=== PATIENT | female | born 1945 | race Caucasian/White ===

== ENCOUNTER 2017-06-11 10:38 | Emergency (ER) | payer MEDICARE, MEDICAID ==
[~2017-06-11] VITALS: Ht 160 cm; Wt 72.7 kg
[~2017-06-11 10:38] MED LIST: ASPI-496 PO; ENAL5TAB PO; GLYB5TAB3 PO; HYDR-3240 PO; HYDR25TA6 PO; INSU100C SQ-INSULIN; INSU100V8 SQ
[2017-06-11] MEDS ORDERED: METF500T4 PO (11:04)
[2017-06-11] MEDS ORDERED: CHOL200074 PO (11:04)
[2017-06-11] MEDS ORDERED: ATOR-2 PO (11:04)
[2017-06-11] MEDS ORDERED: RANI300T PO (11:04)
[2017-06-11] MEDS ORDERED: PIOG15TA2 PO (11:04)
[2017-06-11 11:52] LABS: BASOPHILS # (AUTO) 0.03 x10^3/uL (0-0.1); BASOPHILS % (AUTO) 0 % (0-1); EOSINOPHILS # (AUTO) 0.16 x10^3/uL (0-0.4); EOSINOPHILS % (AUTO) 1 % (1-7); LYMPHOCYTES # (AUTO) 1.45 x10^3/uL (1-3.4); LYMPHOCYTES % (AUTO) 12 % (22-44); MD NO; MEAN CORPUSCULAR HEMOGLOBIN 30.1 pg (27.0-34.8); MEAN CORPUSCULAR HGB CONC 33.3 g/dL (32.4-35.8); MEAN CORPUSCULAR VOLUME 90.3 fL (80-100); MEAN PLATELET VOLUME 10.3 fL (7.4-10.4); MONOCYTES # (AUTO) 0.62 x10^3/uL (0.2-0.8); MONOCYTES % (AUTO) 5 % (2-9); NEUTROPHILS # (AUTO) 9.46 x10^3/uL (1.8-6.8); NEUTROPHILS % (AUTO) 81 % (42-75); PLATELET COUNT 211 x10^3/uL (130-400); RED BLOOD COUNT 4.22 x10^6/uL (3.82-5.3); RED CELL DISTRIBUTION WIDTH 14.6 % (9.6-15.2)
[2017-06-11 12:02] LABS: ALBUMIN 3.2 g/dL (3.4-5.0); ANION GAP 8 mmol/L (5-15); CALCIUM 8.1 mg/dL (8.5-10.1); CHLORIDE 99 mmol/L (98-107)
[2017-06-11 12:29] LABS: MICROSCOPIC NOT IND
[2017-06-11] MEDS ORDERED: HYDROmorphone 1 MG/ML, 1ML IM ONE (12:30)
[2017-06-11 12:31] LABS: CULTURE INDICATED? NO
[2017-06-11] MEDS ORDERED: HYDROmorphone 2 MG/ML, 1ML ONE ×2 (12:54→13:18)
[2017-06-11] MEDS ORDERED: INSULIN REGULAR 100 UNITS/ML, 3ML VIAL ONE (12:55)
[2017-06-11] MEDS ORDERED: DIPHENHYDRAMINE 50 MG/ML, 1ML ONE (13:18)
[2017-06-11 14:13] VITALS: BP 163/69
[2017-06-11] MEDS ORDERED: INSULIN REGULAR 100 UNITS/ML, 3ML VIAL SQ-INSULIN SCH (16:00)
== END 2017-06-11 14:22 | disposition home or self-care (01) ==
LOC: ED 11:56
DX: M54.5 Low back pain (principal); G89.29 Other chronic pain; M17.11 Unilateral primary osteoarthritis, right knee; E11.65 Type 2 diabetes mellitus with hyperglycemia; I10 Essential (primary) hypertension; Z86.73 Personal history of transient ischemic attack (TIA), and cerebral infarction without residual deficits
CPT/HCPCS: 36415; 73564; 80048; 81003; 82040; 82962; 85025; 96372; 99285; J1170